=== PATIENT | female | born 1990 ===

== ENCOUNTER → 2018-03-16 | Outpatient (CLI) | payer SELFPAY ==
[~2018-03-16] MED LIST: BCP; SULTRIDS PO
[2018-03-18 00:12] LABS: CHLAMYDIA TRACHOMATIS, NAA Negative (Negative); NEISSERIA GONORRHOEAE, NAA Negative (Negative)
== END | disposition home or self-care (01) ==
LOC: LAB 13:37 → LAB SHORT 13:37
PROVIDERS: Nurse Practitioner Women's Health
DX: Z11.3 Encounter for screening for infections with a predominantly sexual mode of transmission (principal); Z12.4 Encounter for screening for malignant neoplasm of cervix; Z91.89 Other specified personal risk factors, not elsewhere classified
CPT/HCPCS: 87491; 87591; 87624; G0123

== ENCOUNTER → 2019-04-11 | Outpatient (CLI) | payer BC ==
[2019-04-13 15:07] LABS: HPV 16 Negative (Negative); HPV 18 Negative (Negative); HPV OTHER HR TYPES Negative (Negative)
== END | disposition home or self-care (01) ==
LOC: LAB SHORT 17:23 → LAB 17:23
PROVIDERS: Nurse Practitioner Women's Health
DX: Z12.4 Encounter for screening for malignant neoplasm of cervix (principal); Z91.89 Other specified personal risk factors, not elsewhere classified
CPT/HCPCS: 87624; G0123

== ENCOUNTER → 2022-04-08 | Outpatient (CLI) | payer BC | END | disposition home or self-care (01) | LOC: LAB 09:00 → LAB SHORT 09:00 | DX: Z00.00 Encounter for general adult medical examination without abnormal findings (principal) | CPT/HCPCS: 85651 ==

== ENCOUNTER → 2022-08-25 | Outpatient (CLI) | payer BC | LOC: LAB SHORT 12:14 → LAB 12:14 | DX: N39.0 Urinary tract infection, site not specified (principal) | CPT/HCPCS: 87077; 87086; 87186 ==